=== PATIENT | male | born 1955 | race Caucasian/White ===

== ENCOUNTER 2022-05-22 13:23 | Inpatient (IN) | payer MEDICARE, OTHER ==
[~2022-05-22] VITALS: Ht 180.3 cm; Wt 97.5 kg
--- NOTE | 2022-05-22 13:47 | ED General ---
General Chief Complaint: Abdominal/GI Problems Stated Complaint: ABD PAIN History of Present Illness Date Seen by Provider: May 22, 2022 Time Seen by Provider: 13:45 Initial Comments 67-year-old male with PMH of HTN/HLD/BPH, is here with complaints of epigastric and RUQ pain which began last night after he had a dinner of spaghetti at home. The spaghetti was leftovers from 2 or 3 days ago. Denies fever, diarrhea, vomiting, chest pain, palpitations, constipation, shortness of breath. Patient had COVID 3 weeks ago. Allergies and Home Medications Allergies Coded Allergies: No Known Drug Allergies (Unverified , 05/22/22) Patient Home Medication List Home Medication List Reviewed: Yes Review of Systems Review of Systems Constitutional: no symptoms reported, malaise EENTM: no symptoms reported Respiratory: no symptoms reported Cardiovascular: no symptoms reported Gastrointestinal: abdominal pain, loss of appetite, nausea Genitourinary: no symptoms reported Musculoskeletal: no symptoms reported Skin: no symptoms reported Psychiatric/Neurological: No Symptoms Reported Hematologic/Lymphatic: No Symptoms Reported Immunological/Allergic: no symptoms reported Physical Exam Vital Signs Vital Signs - First Documented 05/22/22 14:53 Temp 36.8 Pulse 69 Resp 18 B/P (MAP) 164/99 (120) Pulse Ox 99 O2 Delivery Room Air Capillary Refill : Height, Weight, BMI Height: '" Weight: lbs. oz. kg; BMI Method: General Appearance: Moderate Distress HEENT: PERRL/EOMI, Normal ENT Inspection Neck: Full Range of Motion, Normal Inspection, Non Tender, Supple Respiratory: Chest Non Tender, Lungs Clear, Normal Breath Sounds, No Accessory Muscle Use Cardiovascular: Regular Rate, Rhythm, No Edema Gastrointestinal: Normal Bowel Sounds, No Pulsatile Mass, Soft, Tenderness (epigastric tenderness and RUQ tenderness) Extremity: Normal Inspection, Normal Range of Motion Neurologic/Psychiatric: Alert, Oriented x3, No Motor/Sensory Deficits, Normal Mood/Affect Skin: Normal Color, Warm/Dry Focused Exam Lactate Level 05/22/22 14:05: Lactic Acid Level 1.91 Lactic Acid Level Laboratory Tests Test 05/22/22 14:05 Lactic Acid Level 1.91 MMOL/L (0.50-2.00) Progress/Results/Core Measures Suspected Sepsis SIRS Temperature: Pulse: Respiratory Rate: Laboratory Tests 05/22/22 14:05: White Blood Count 11.5H Blood Pressure / Mean: 05/22/22 14:05: Lactic Acid Level 1.91 Laboratory Tests 05/22/22 14:05: Creatinine 0.88, INR Comment 0.9, Platelet Count 210, Total Bilirubin 0.8 Results/Orders Lab Results Laboratory Tests Test 05/22/22 14:05 05/22/22 15:45 05/22/22 15:49 Range/Units White Blood Count 11.5 H 4.3-11.0 10^3/uL Red Blood Count 5.03 4.30-5.52 10^6/uL Hemoglobin 16.2 13.3-17.7 g/dL Hematocrit 46 40-54 % Mean Corpuscular Volume 91 80-99 fL Mean Corpuscular Hemoglobin 32 25-34 pg Mean Corpuscular Hemoglobin Concent 35 32-36 g/dL Red Cell Distribution Width 11.7 10.0-14.5 % Platelet Count 210 130-400 10^3/uL Mean Platelet Volume 9.9 9.0-12.2 fL Immature Granulocyte % (Auto) 0 % Neutrophils (%) (Auto) 84 H 42-75 % Lymphocytes (%) (Auto) 11 L 12-44 % Monocytes (%) (Auto) 4 0-12 % Eosinophils (%) (Auto) 0 0-10 % Basophils (%) (Auto) 0 0-10 % Neutrophils # (Auto) 9.6 H 1.8-7.8 10^3/uL Lymphocytes # (Auto) 1.3 1.0-4.0 10^3/uL Monocytes # (Auto) 0.5 0.0-1.0 10^3/uL Eosinophils # (Auto) 0.0 0.0-0.3 10^3/uL Basophils # (Auto) 0.0 0.0-0.1 10^3/uL Immature Granulocyte # (Auto) 0.0 0.0-0.1 10^3/uL Prothrombin Time 12.7 12.2-14.7 SEC INR Comment 0.9 0.8-1.4 Activated Partial Thromboplast Time 32 24-35 SEC D-Dimer 1.35 H 0.00-0.49 UG/ML Sodium Level 140 135-145 MMOL/L Potassium Level 3.7 3.6-5.0 MMOL/L Chloride Level 101 98-107 MMOL/L Carbon Dioxide Level 25 21-32 MMOL/L Anion Gap 14 5-14 MMOL/L Blood Urea Nitrogen 11 7-18 MG/DL Creatinine 0.88 0.60-1.30 MG/DL Estimat Glomerular Filtration Rate 94 BUN/Creatinine Ratio 13 Glucose Level 138 H 70-105 MG/DL Lactic Acid Level 1.91 0.50-2.00 MMOL/L Calcium Level 10.3 H 8.5-10.1 MG/DL Corrected Calcium 8.5-10.1 MG/DL Magnesium Level 1.5 L 1.6-2.4 MG/DL Total Bilirubin 0.8 0.1-1.0 MG/DL Aspartate Amino Transf (AST/SGOT) 42 H 5-34 U/L Alanine Aminotransferase (ALT/SGPT) 48 0-55 U/L Alkaline Phosphatase 73 40-136 U/L Troponin I 1.84 *H 3.25 *H <0.30 NG/ML Pro-B-Type Natriuretic Peptide 2107.0 H <125.0 PG/ML Total Protein 8.6 H 6.4-8.2 GM/DL Albumin 4.9 H 3.2-4.5 GM/DL Lipase 22 8-78 U/L Urine Color YELLOW Urine Clarity CLEAR Urine pH 8.0 5-9 Urine Specific [place] 1.015 L 1.016-1.022 Urine Protein TRACE H NEGATIVE Urine Glucose (UA) NEGATIVE NEGATIVE Urine Ketones 2+ H NEGATIVE Urine Nitrite NEGATIVE NEGATIVE Urine Bilirubin NEGATIVE NEGATIVE Urine Urobilinogen 0.2 < = 1.0 MG/DL Urine Leukocyte Esterase NEGATIVE NEGATIVE Urine RBC (Auto) NEGATIVE NEGATIVE Urine RBC NONE /HPF Urine WBC NONE /HPF Urine Squamous Epithelial Cells RARE /HPF Urine Crystals NONE /LPF Urine Bacteria NEGATIVE /HPF Urine Casts NONE /LPF Urine Mucus NEGATIVE /LPF Urine Culture Indicated NO My Orders Orders - EVAN RICH MD Cbc With Automated Diff (05/22/22 13:56) Comprehensive Metabolic Panel (05/22/22 13:56) Lactic Acid Analyzer (05/22/22 13:56) Lipase (05/22/22 13:56) Magnesium (05/22/22 13:56) Ua Culture If Indicated (05/22/22 13:56) Troponin I Fs (05/22/22 13:56) Ed Iv/Invasive Line Start (05/22/22 13:56) Ondansetron Injection (Zofran Injectio (05/22/22 14:15) Pantoprazole Injection (Protonix Injecti (05/22/22 14:15) Morphine Injection (Morphine Injection (05/22/22 14:01) Ct Abdomen/Pelvis W (05/22/22 14:02) Iohexol Injection (Omnipaque 350 Mg/Ml 1 (05/22/22 14:30) Received Contrast (Hold Metformin- Contr (05/22/22 14:30) Ns (Ivpb) (Sodium Chloride 0.9% Ivpb Bag (05/22/22 14:30) Us Gallbladder [id number] (05/22/22 14:40) Continuous Ekg Monitoring (05/22/22 14:44) Ekg Tracing (05/22/22 14:44) Aspirin Chewable Tablet (Baby Aspirin Ch (05/22/22 14:45) Morphine Injection (Morphine Injection (05/22/22 14:44) Chest 1 View Ap/Pa Only (05/22/22 14:47) Fibrin Degradation Products (05/22/22 14:47) Protime With Inr (05/22/22 14:47) Partial Thromboplastin Time (05/22/22 14:47) Probnp Fs (05/22/22 14:48) Nitroglycerin 0.4 Mg Btl 25's (Nitrostat (05/22/22 15:00) Hydromorphone Injection (Dilaudid Inject (05/22/22 15:30) Iohexol Injection (Omnipaque 350 Mg/Ml 1 (05/22/22 15:45) Received Contrast (Hold Metformin- Contr (05/22/22 15:45) Ns (Ivpb) (Sodium Chloride 0.9% Ivpb Bag (05/22/22 15:45) Troponin I Fs (05/22/22 15:45) Ekg Tracing (05/22/22 15:45) Ct Angio Chest W (05/22/22 ) Iohexol Injection (Omnipaque 350 Mg/Ml 1 (05/22/22 16:45) Received Contrast (Hold Metformin- Contr (05/22/22 16:45) Ns (Ivpb) (Sodium Chloride 0.9% Ivpb Bag (05/22/22 16:45) Enoxaparin Injection (Lovenox Injection) (05/22/22 16:29) Ed Admission (Communication) (05/22/22 16:42) Clopidogrel Tablet (Plavix Tablet) (05/22/22 18:15) Medications Given in ED Current Medications Medications Dose Ordered Sig/Nikolas Route Start Time Stop Time Status Last Admin Dose Admin Aspirin 324 mg ONCE ONCE PO 05/22/22 14:45 05/22/22 14:46 DC 05/22/22 14:49 324 MG Hydromorphone HCl 1 mg ONCE ONCE IV 05/22/22 15:30 05/22/22 15:31 DC 05/22/22 15:31 1 MG Iohexol 100 ml ONCE ONCE IV 05/22/22 14:30 05/22/22 14:31 DC 05/22/22 15:05 100 ML Iohexol 100 ml ONCE ONCE IV 05/22/22 16:45 05/22/22 16:46 DC 05/22/22 16:48 100 ML Nitroglycerin 0.4 mg UD PRN SL 05/22/22 15:00 05/22/22 15:10 0.4 MG Ondansetron HCl 4 mg ONCE ONCE IVP 05/22/22 14:15 05/22/22 14:16 DC 05/22/22 14:11 4 MG Pantoprazole 40 mg ONCE ONCE IV 05/22/22 14:15 05/22/22 14:16 DC 05/22/22 14:11 40 MG Sodium Chloride 100 ml ONCE ONCE IV 05/22/22 14:30 05/22/22 14:31 DC 05/22/22 15:05 100 ML Sodium Chloride 100 ml ONCE ONCE IV 05/22/22 16:45 05/22/22 16:46 DC 05/22/22 16:48 100 ML Vital Signs/I&O 05/22/22 14:53 Temp 36.8 Pulse 69 Resp 18 B/P (MAP) 164/99 (120) Pulse Ox 99 O2 Delivery Room Air Capillary Refill : Progress Note : Progress Note 1. EPIGASTRIC & RUQ PAIN: - CT ABD & PELVIS: unremarkable - Lipase negative - UA: negative - Morphine 2mg iv, didn't work/ Morphine 4mg iv didn't work/ Dilaudid 1mg iv gave relief from pain - Discussed with hospitalist, Dr Andrade and accepted to step down. Cardiology consult 2. ELEVATED TROPONIN: NSTEMI - s. Troponin is 1.86 and second trop is 3.25 - ASA 324mg STAT - Sublingual Nitro STAT x1 - Discussed with Insurance Loss Adjuster, Dr Christian. Full dose Lovenox, do CTA chest, and will admit for NSTEMI for conservative management. IF negative for PE, give Plavix 300mg as well. - Lovenox 1mg/kg body weight given STAT - Plavix 300mg STAT in ER 3. ELEVATED D-DIMER: - D-dimer: 1.35 - CTA CHEST: negative for PE - Recent COVID 3 weeks ago - Denies SOB and O2 sat stable on room air. Diagnostic Imaging Diagonstic Imaging: Xray, CT Plain Films/CT/US/NM/MRI: chest, abdomen Comments [facility] [place] NAME: IKE EASTMAN [facility] REC#: [id number] PT STATUS: REG ER : 1955 PHYSICIAN: EVAN RICH MD ADMIT DATE: 05/22/22/ER FS Draft Date of Exam:05/22/22 CT ABDOMEN/PELVIS W EXAMINATION: CT abdomen and pelvis with intravenous contrast. TECHNIQUE: Multiple contiguous axial images were obtained through the abdomen and pelvis after the uneventful administration of intravenous contrast. All CT scans use one or more of the following dose optimizing techniques: automated exposure control, MA and/or KvP adjustment based on patient size and exam type or iterative reconstruction. HISTORY: Epigastric pain. COMPARISON: None available. FINDINGS: Limited views of the lower thorax are unremarkable. The liver is normal without focal lesion. There is no biliary ductal dilation. Gallbladder is normal. Pancreas is normal. Spleen is normal. Adrenal glands are normal. Simple cysts are present in the kidneys. No suspicious renal lesions. There is no hydronephrosis. Urinary bladder is normal. Bowel is normal in caliber without obstruction or inflammation. Trace amount of free fluid is present in the pelvis. No free air. No abdominal or pelvic lymphadenopathy. Aorta is normal in caliber without aneurysm. There are no suspicious osseus lesions. Spinal stimulator is present. IMPRESSION: No acute abnormality in the abdomen or pelvis. Dictated on workstation # [id number] Dict: 05/22/22 1520 Trans: 05/22/22 1525 [id number] Interpreted by: LASHAWN HOLLAND MD Electronically signed by: Departure Communication (Admissions) Time/Spoke to Admitting Phy: 14:[address] Andrade. Will call cardiology consult after getting second troponin back Time/Spoke to Consulting Phy: 16:00 Discussed with audiology doctor, Dr. Christian Impression Primary Impression: Epigastric abdominal pain Additional Impressions: Elevated troponin Elevated d-dimer NSTEMI (non-ST elevated myocardial infarction) Disposition: 30 STILL A PATIENT Condition: Stable Admissions Decision to Admit Reason: Admit from ER (General) Decision to Admit/Date: May 22, 2022 Time/Decision to Admit Time: 14:30 Transfer Transfer Reason: Exceeds level of care Time Spoke to Accepting Phy: 14:55 Transfer Progress Notes See note Transfer Facility: [facility]: [place] Method of Transfer: EMS Departure-Patient Inst. Referrals: TODD RAE APRN (PCP) Primary Care Physician [facility] (Family) Primary Care Physician EVAN RICH MD May 22, 2022 13:46
[2022-05-22] MEDS ORDERED: morphine INJ 10 MG/ML 1ML (SYR OR VIAL) IVP STA (14:01)
[2022-05-22] MEDS ORDERED: ONDANSETRON 4 MG/2 ML (SDV) Z0FRAN IVP ONE (14:15)
[2022-05-22] MEDS ORDERED: PANTOPRAZOLE 40 MG (PROTONIX) VIAL IV ONE (14:15)
[2022-05-22 14:18] LABS: BASOPHILS % (AUTO) 0 % (0-10); EOSINOPHILS % (AUTO) 0 % (0-10); HEMATOCRIT 46 % (40-54); HEMOGLOBIN 16.2 g/dL (13.3-17.7); LYMPHOCYTES # (AUTO) 1.3 10^3/uL (1.0-4.0); LYMPHOCYTES % (AUTO) 11 % (12-44); MEAN CORPUSCULAR HEMOGLOBIN 32 pg (25-34); MEAN CORPUSCULAR HGB CONC 35 g/dL (32-36); MEAN CORPUSCULAR VOLUME 91 fL (80-99); MEAN PLATELET VOLUME 9.9 fL (9.0-12.2); MONOCYTES # (AUTO) 0.5 10^3/uL (0.0-1.0); MONOCYTES % (AUTO) 4 % (0-12); NEUTROPHILS # (AUTO) 9.6 10^3/uL (1.8-7.8); NEUTROPHILS % (AUTO) 84 % (42-75); PLATELET COUNT 210 10^3/uL (130-400); WHITE BLOOD COUNT 11.5 10^3/uL (4.3-11.0)
[2022-05-22] MEDS ORDERED: NS 100 ML (IVPB) BAG IV ONE ×3 (14:30→16:45)
[2022-05-22] MEDS ORDERED: HOLD METFORMIN - RECEIVED CONTRAST 20 ML VIAL IV SCH ×3 (14:30→16:45)
[2022-05-22] MEDS ORDERED: IOHEXOL 350 MG/ML 100 ML (OMNIPAQUE 350) VIAL IV ONE ×3 (14:30→16:45)
[2022-05-22 14:40] LABS: BUN/CREATININE RATIO 13; CALCIUM 10.3 MG/DL (8.5-10.1); CARBON DIOXIDE 25 MMOL/L (21-32); CHLORIDE 101 MMOL/L (98-107); CREATININE SERUM 0.88 MG/DL (0.60-1.30); GFR ESTIMATED 94; GLUCOSE 138 MG/DL (70-105); POTASSIUM 3.7 MMOL/L (3.6-5.0); SODIUM 140 MMOL/L (135-145)
[2022-05-22 14:41] LABS: ALANINE AMINOTRANSFERASE 48 U/L (0-55); ALKALINE PHOSPHATASE 73 U/L (40-136); BILIRUBIN,TOTAL 0.8 MG/DL (0.1-1.0); MAGNESIUM 1.5 MG/DL (1.6-2.4)
[2022-05-22 14:42] LABS: ALBUMIN 4.9 GM/DL (3.2-4.5); TOTAL PROTEIN 8.6 GM/DL (6.4-8.2)
[2022-05-22 14:43] LABS: LIPASE 22 U/L (8-78)
[2022-05-22] MEDS ORDERED: morphine INJ 10 MG/ML 1ML (SYR OR VIAL) IV STA (14:44)
[2022-05-22] MEDS ORDERED: ASPIRIN 81 MG CHEW (CHILDREN'S ASA) PO ONE (14:45)
[2022-05-22] MEDS ORDERED: HYDROmorphone 2 MG/ML VIAL (DILAUDID) IV ONE ×2 (14:45→15:30)
[2022-05-22] MEDS ORDERED: NITROGLYCERIN 0.4 MG SL TABS BTL 25'S SL PRN (15:00)
[2022-05-22 15:09] LABS: FIBRIN DEGRADATION PRODUCTS 1.35 UG/ML (0.00-0.49); INR 0.9 (0.8-1.4); PROTHROMBIN TIME PATIENT 12.7 SEC (12.2-14.7)
--- NOTE | 2022-05-22 15:26 | Diagnostic Imaging Report ---
EXAMINATION: CT abdomen and pelvis with intravenous contrast. TECHNIQUE: Multiple contiguous axial images were obtained through the abdomen and pelvis after the uneventful administration of intravenous contrast. All CT scans use one or more of the following dose optimizing techniques: automated exposure control, MA and/or KvP adjustment based on patient size and exam type or iterative reconstruction. HISTORY: Epigastric pain. COMPARISON: None available. FINDINGS: Limited views of the lower thorax are unremarkable. The liver is normal without focal lesion. There is no biliary ductal dilation. Gallbladder is normal. Pancreas is normal. Spleen is normal. Adrenal glands are normal. Simple cysts are present in the kidneys. No suspicious renal lesions. There is no hydronephrosis. Urinary bladder is normal. Bowel is normal in caliber without obstruction or inflammation. Trace amount of free fluid is present in the pelvis. No free air. No abdominal or pelvic lymphadenopathy. Aorta is normal in caliber without aneurysm. There are no suspicious osseus lesions. Spinal stimulator is present. IMPRESSION: No acute abnormality in the abdomen or pelvis. Dictated by: Dictated on workstation # [id number]
--- NOTE | 2022-05-22 15:46 | Diagnostic Imaging Report ---
Indication: Epigastric pain. Time of Exam: 3:11 PM No prior studies are available for comparison. Heart size normal. Right hemidiaphragm is mildly elevated. Lungs are clear. No infiltrates are seen. There is no effusion or pneumothorax. Battery pack overlies the left base. IMPRESSION: No acute cardiopulmonary process is detected. Dictated by: Dictated on workstation # [id number]
[2022-05-22 16:09] LABS: BILIRUBIN,URINE NEGATIVE (NEGATIVE); CLARITY,URINE CLEAR; COLOR,URINE YELLOW; GLUCOSE, URINE (UA) NEGATIVE (NEGATIVE); KETONES,URINE 2+ (NEGATIVE); LEUKOCYTE ESTERASE ,URINE NEGATIVE (NEGATIVE); NITRITE,URINE NEGATIVE (NEGATIVE); PROTEIN,URINE TRACE (NEGATIVE)
[2022-05-22 16:21] LABS: BACTERIA,URINE NEGATIVE /HPF; SQUAMOUS EPITHELIAL CELL,UR RARE /HPF
[2022-05-22] MEDS ORDERED: ENOXAPARIN 100 MG/1 ML (LOVENOX) SYR SC STA (16:29)
--- NOTE | 2022-05-22 17:55 | Diagnostic Imaging Report ---
PROCEDURE: CT angiography of the chest with contrast. TECHNIQUE: Multiple contiguous axial images were obtained through the chest after uneventful bolus administration of intravenous contrast. 3D reconstructed CTA MIP acquisitions were also performed. Auto Exposure Controls were utilized during the CT exam to meet ALARA standards for radiation dose reduction. INDICATION: Elevated D-dimer. FINDINGS: Pulmonary arterial branches are well opacified and widely patent. No filling defect. No PE. The thoracic aorta is nonaneurysmal. There is no pleural or pericardial effusion. There are no findings of pneumonia or pulmonary edema. No lung mass or suspicious nodule. There is no thoracic lymphadenopathy and no acute chest wall pathology. Spinal catheter terminates at the T1-T2 level. The visualized upper abdomen is nonacute. IMPRESSION: 1. Negative for PE or acute aortic disease. Clear lungs with no mass, edema, or pneumonia. No effusion or pleural pathology. 2. No acute-appearing abnormality identified. Dictated by: Dictated on workstation # [id number]
[2022-05-22] MEDS ORDERED: CLOPIDOGREL 300 MG (PLAVIX) TABLET PO ONE (18:15)
[2022-05-22] MEDS ORDERED: HYDROmorphone 2 MG/ML VIAL (DILAUDID) ONE (18:53)
[2022-05-22 19:51] VITALS: BP 138/92
[2022-05-22] MEDS ORDERED: NS IV 1000 ML 1,000 ML ONE (21:12)
[2022-05-22] MEDS: NS IV 1000 ML 1,000 ML IV SCH (21:40)
[2022-05-22 22:00] VITALS: BP 103/69
[2022-05-23] VITALS (9 sets, daily range): BP systolic 79–127; BP diastolic 44–81
[2022-05-23] MEDS ORDERED: HYDROmorphone 2 MG/ML VIAL (DILAUDID) ONE (00:27)
[2022-05-23] MEDS ORDERED: HYDROmorphone 2 MG/ML VIAL (DILAUDID) IV PRN (00:30)
[2022-05-23] MEDS: HYDROmorphone 2 MG/ML VIAL (DILAUDID) IV PRN ×4 (02:26→12:32)
[2022-05-23] MEDS: NS IV 1000 ML 1,000 ML IV SCH ×3 (04:34→17:15)
[2022-05-23 05:24] LABS: BASOPHILS % (AUTO) 0 % (0-10); EOSINOPHILS % (AUTO) 1 % (0-10); HEMATOCRIT 40 % (40-54); HEMOGLOBIN 13.3 g/dL (13.3-17.7); LYMPHOCYTES # (AUTO) 2.2 10^3/uL (1.0-4.0); LYMPHOCYTES % (AUTO) 31 % (12-44); MEAN CORPUSCULAR HEMOGLOBIN 32 pg (25-34); MEAN CORPUSCULAR HGB CONC 34 g/dL (32-36); MEAN CORPUSCULAR VOLUME 94 fL (80-99); MEAN PLATELET VOLUME 9.8 fL (9.0-12.2); MONOCYTES # (AUTO) 0.6 10^3/uL (0.0-1.0); MONOCYTES % (AUTO) 8 % (0-12); NEUTROPHILS # (AUTO) 4.3 10^3/uL (1.8-7.8); NEUTROPHILS % (AUTO) 60 % (42-75); PLATELET COUNT 183 10^3/uL (130-400); WHITE BLOOD COUNT 7.2 10^3/uL (4.3-11.0)
[2022-05-23 05:48] LABS: ALBUMIN 3.7 GM/DL (3.2-4.5); POTASSIUM 3.5 MMOL/L (3.6-5.0)
[2022-05-23 05:50] LABS: CALCIUM 8.8 MG/DL (8.5-10.1)
[2022-05-23 05:51] LABS: TOTAL PROTEIN 6.5 GM/DL (6.4-8.2)
[2022-05-23 05:53] LABS: BILIRUBIN,TOTAL 0.8 MG/DL (0.1-1.0)
[2022-05-23 05:54] LABS: CREATININE SERUM 0.91 MG/DL (0.60-1.30)
--- NOTE | 2022-05-23 08:13 | Consultation-Cardiology ---
HPI-Cardiology Cardiology Consultation: Date of Consultation 05/23/22 Time Seen by a Provider: 08:25 Date of Admission 05-22-22 Attending Physician Whitney Rios Aprn Admitting Physician Admitting Physician: Rebecca Andrade MD Attending Physician: Rebecca Andrade MD Consulting Physician Jen Christian MD HPI: Chief Complaint: Chest pain Mr. Barclay is a 67 yr old male admitted to [facility] from the [facility] ED. He reports he ate dinner on Sunday night and then around 10:00 he developed epigastric discomfort, nausea, diaphoresis and SOB. He states he was up most of the night on Sunday night. He reports he tried TUMS, soda water; but nothing helped it. He reports he felt lightheaded. He states the symptoms were consistent throughout the night and into Sunday morning. He reports he felt generally unwell. No vomiting or diarrhea. No palpitations. No syncope or near syncope. He denies any LE swelling. He states he has continued to have symptoms off and on throughout the night. He reports he had some relief with Dilaudid. He is reporting FORTUNE and neck pain this morning. His spouse is at the bedside. 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 Review of Systems-Cardiology Review of Systems Constitutional: No chills, No fever; lightheadedness Eyes: No vision change Ears/Nose/Throat: No epistaxis, No recent hearing loss Respiratory: As described under HPI Cardiovascular: As described under HPI Gastrointestinal: As described under HPI Genitourinary: No dysuria, No hematuria Musculoskeletal: As describe under HPI Skin: No rash on exposed areas, No ulcerations on exposed areas Psychiatric/Neurological: No anxiety, No depression, No seizure, No focal weakness, No syncope Hematologic: No bleeding abnormalities ADQ-Wvfhtf-Dmtovb Hx Patient Social History Have you traveled recently?: No Alcohol Use?: No Past Medical History PMH As described under Assessment. Family Medical History Family Medical History: He reports his grandfather passed from an NE at age 49. He denies any other family h/o CAD. Allergies and Home Medications Allergies Coded Allergies: No Known Drug Allergies (Unverified , 05/22/22) Patient Home Medication List Cholecalciferol (Vitamin D3) (Vitamin D3) 50 Mcg (2000 Unit) Capsule, 50 MCG PO DAILY, (Reported) Entered as Reported by: CORI MENDEZ on 05/23/221224 Last Action: Converted Cyanocobalamin (Vitamin B-12) (Vitamin B-12) 2,000 Mcg Tablet, 2,000 MCG PO DAILY, (Reported) Entered as Reported by: CORI MENDEZ on 05/23/221224 Last Action: Converted Diphenhydramine HCl (Benadryl Allergy) 25 Mg Tablet, 50 MG PO HS PRN for SLEEP, (Reported) Entered as Reported by: CORI MENDEZ on 05/23/221224 Last Action: Continued Docusate Sodium (Docusate Sodium) 100 Mg Tablet, 200 MG PO HS, (Reported) Entered as Reported by: CORI MENDEZ on 05/23/221224 Last Action: Converted Ibuprofen (Ibuprofen) 200 Mg Capsule, 400 MG PO Q8H PRN for PAIN-MILD (1-4), ( Reported) Entered as Reported by: CORI MENDEZ on 05/23/221224 Last Action: Reviewed Melatonin (Melatonin) 10 Mg Tablet, 10 MG PO HS, (Reported) Entered as Reported by: CORI MENDEZ on 05/23/221224 Last Action: Continued Metoprolol Succinate (Metoprolol Succinate) 25 Mg Tab.er.24h, 25 MG PO DAILY, (Reported) Entered as Reported by: CORI MENDEZ on 05/23/221224 Last Action: Continued Omeprazole (Omeprazole) 20 Mg Tablet.dr, 20 MG PO HS, (Reported) Entered as Reported by: CORI MENDEZ on 05/23/221224 Last Action: Reviewed Rosuvastatin Calcium (Rosuvastatin Calcium) 10 Mg Tablet, 10 MG PO DAILY, (Reported) Entered as Reported by: CORI MENDEZ on 05/23/221224 Last Action: Reviewed Tamsulosin HCl (Flomax) 0.4 Mg Cap, 0.4 MG PO DAILY, (Reported) Entered as Reported by: CORI MENDEZ on 05/23/221224 Last Action: Continued Physical Exam-Cardiology Physical Exam Vital Signs/I&O 05/23/22 05/23/22 05/24/22 05/24/22 22:00 23:00 00:00 01:00 Temp 36.0 Pulse 43 46 44 42 Resp B/P (MAP) 79/44 (59) 110/65 (80) 104/64 (77) Pulse Ox 97 95 96 O2 Delivery Nasal Cannula Nasal Cannula Nasal Cannula O2 Flow Rate 2.00 2.00 2.00 05/24/22 05/24/22 05/24/22 05/24/22 04:00 06:32 08:00 08:20 Temp 36.3 36.2 Pulse 49 43 57 Resp 24 22 B/P (MAP) 112/79 (90) 121/72 (88) Pulse Ox 96 98 O2 Delivery Nasal Cannula Room Air Nasal Cannula O2 Flow Rate 2.00 2.00 05/24/22 00:00 Intake Total 1855 ml Output Total 250 ml Balance 1605 ml Capillary Refill : Constitutional: AAO x 3, well-developed, well-nourished HEENT: PERRL, hearing is well preserved, oral hygience is good Neck: No carotid bruit; carotid pulses are 2 + bilaterally Respiratory: No accessory muscle use, No respiratory distress; chest expansion is symmetric, chest is bilaterally symmetric, lungs clear to auscultation Cardiovascular: regular rate-rhythm; No JVD; S1 and S2 Gastrointestinal: No tender; soft, round, audible bowel sounds Extremities: no lower extremity edema bilateral Neurologic/Psychiatric: grossly intact (moves all extremities) Skin: No rash on exposed areas, No ulcerations on exposed areas Data Review Labs Laboratory Tests 05/24/22 05:51: White Blood Count 5.4, Red Blood Count 3.65L, Hemoglobin 11.7L, Hematocrit 35L, Mean Corpuscular Volume 96, Mean Corpuscular Hemoglobin 32, Mean Corpuscular Hemoglobin Concent 33, Red Cell Distribution Width 11.8, Platelet Count 148, Mean Platelet Volume 10.0, Immature Granulocyte % (Auto) 0, Neutrophils (%) (A uto) 63, Lymphocytes (%) (Auto) 27, Monocytes (%) (Auto) 8, Eosinophils (%) (Auto) 1, Basophils (%) (Auto) 1, Neutrophils # (Auto) 3.4, Lymphocytes # (Auto) 1.4, Monocytes # (Auto) 0.4, Eosinophils # (Auto) 0.1, Basophils # (Auto) 0.0, Immature Granulocyte # (Auto) 0.0, Sodium Level 140, Potassium Level 4.0, Chloride Level 107, Carbon Dioxide Level 23, Anion Gap 10, Blood Urea Nitrogen 15, Creatinine 0.77, Estimat Glomerular Filtration Rate 98, BUN/Creatinine Ratio 19, Glucose Level 99, Calcium Level 8.5, Corrected Calcium 9.1, Magnesium Level 1.9, Total Bilirubin 0.6, Aspartate Amino Transf (AST/SGOT) 24, Alanine Aminotransferase (ALT/SGPT) 26, Alkaline Phosphatase 43, Total Protein 5.8L, Albumin 3.3 Radiology NAME: IKE BARCLAY [facility] REC#: [id number] PT STATUS: REG ER : 1955 PHYSICIAN: EVAN RICH MD ADMIT DATE: 05/22/22/ER FS Signed Date of Exam:05/22/22 CT ANGIO CHEST W PROCEDURE: CT angiography of the chest with contrast. TECHNIQUE: Multiple contiguous axial images were obtained through the chest after uneventful bolus administration of intravenous contrast. 3D reconstructed CTA MIP acquisitions were also performed. Auto Exposure Controls were utilized during the CT exam to meet ALARA standards for radiation dose reduction. INDICATION: Elevated D-dimer. FINDINGS: Pulmonary arterial branches are well opacified and widely patent. No filling defect. No PE. The thoracic aorta is nonaneurysmal. There is no pleural or pericardial effusion. There are no findings of pneumonia or pulmonary edema. No lung mass or suspicious nodule. There is no thoracic lymphadenopathy and no acute chest wall pathology. Spinal catheter terminates at the T1-T2 level. The visualized upper abdomen is nonacute. IMPRESSION: 1. Negative for PE or acute aortic disease. Clear lungs with no mass, edema, or pneumonia. No effusion or pleural pathology. 2. No acute-appearing abnormality identified. Dictated by: Dictated on workstation # [id number] Dict: 05/22/22 1745 Trans: 05/22/221801 AS6 [id number] Interpreted by: RAVEN CASTANEDA Electronically signed by: RAVEN CASTANEDA 05/22/221801 NAME: IKE BARCLAY [facility] REC#: [id number] PT STATUS: REG ER : 1955 PHYSICIAN: EVAN RICH MD ADMIT DATE: 05/22/22/ER FS Signed Date of Exam:05/22/22 CT ABDOMEN/PELVIS W EXAMINATION: CT abdomen and pelvis with intravenous contrast. TECHNIQUE: Multiple contiguous axial images were obtained through the abdomen and pelvis after the uneventful administration of intravenous contrast. All CT scans use one or more of the following dose optimizing techniques: automated exposure control, MA and/or KvP adjustment based on patient size and exam type or iterative reconstruction. HISTORY: Epigastric pain. COMPARISON: None available. FINDINGS: Limited views of the lower thorax are unremarkable. The liver is normal without focal lesion. There is no biliary ductal dilation. Gallbladder is normal. Pancreas is normal. Spleen is normal. Adrenal glands are normal. Simple cysts are present in the kidneys. No suspicious renal lesions. There is no hydronephrosis. Urinary bladder is normal. Bowel is normal in caliber without obstruction or inflammation. Trace amount of free fluid is present in the pelvis. No free air. No abdominal or pelvic lymphadenopathy. Aorta is normal in caliber without aneurysm. There are no suspicious osseus lesions. Spinal stimulator is present. IMPRESSION: No acute abnormality in the abdomen or pelvis. Dictated by: Dictated on workstation # [id number] Dict: 05/22/22 1520 Trans: 05/22/221656 [id number] Interpreted by: LASHAWN HOLLAND MD Electronically signed by: LASHAWN HOLLAND MD 05/22/22 165 NAME: IKE BARCLAY [facility] REC#: [id number] PT STATUS: REG ER : 1955 PHYSICIAN: EVAN RICH MD ADMIT DATE: 05/22/22/ER FS Signed Date of Exam:05/22/22 CHEST 1 VIEW AP/PA ONLY Indication: Epigastric pain. Time of Exam: 3:11 PM No prior studies are available for comparison. Heart size normal. Right hemidiaphragm is mildly elevated. Lungs are clear. No infiltrates are seen. There is no effusion or pneumothorax. Battery pack overlies the left base. IMPRESSION: No acute cardiopulmonary process is detected. Dictated by: Dictated on workstation # [id number] Dict: 05/22/22 1540 Trans: 05/22/22 1552 [facility] [id number] Interpreted by: TIAN QUESADA MD Electronically signed by: TIAN QUESADA MD 05/22/22 155 ECG Impression ECG Initial ECG Rhythm: Normal Sinus A/P-Cardiology Assessment/Admission Diagnosis NSTEMI HTN HLD BPH Chronic neck and back pain - has a pain pump implanted - h/o cervical neck surgery H/O bilat knee replacements Discussion and Recomendations NSTEMI with continuing symptoms - we advise cardiac cath We have discussed the procedure, risks, benefits and potential complications of cardiac cath with possible ad hoc coronary intervention. He provides informed consent We will proceed today Start BB, ASA and Plavix Continue home Crestor Monitor lab closely Further recs will be based on his hospital course We would like to thank medical services for this consult CLARISSA HUMPHRIES May 23, 2022 08:13
[2022-05-23] MEDS ORDERED: CLOPIDOGREL 75 MG (PLAVIX) TABLET PO SCH (09:00)
[2022-05-23] MEDS ORDERED: PANTOPRAZOLE 40 MG (PROTONIX) VIAL IV ONE (09:00)
[2022-05-23] MEDS ORDERED: HEParin (CATH LAB) 2,000 ML IV ONE (09:04)
[2022-05-23] MEDS ORDERED: LIDOCAINE 1% INJ 20 ML VIAL ONE (09:04)
[2022-05-23] MEDS ORDERED: KCL 20 MEQ TAB (K-DUR) PO ONE (09:15)
[2022-05-23] MEDS: meTOprolol TARTRATE 25 MG (LOPRESSOR) TABLET PO SCH ×2 (09:36→20:00)
[2022-05-23] MEDS: ASPIRIN 81 MG CHEW (CHILDREN'S ASA) PO SCH (09:36)
[2022-05-23] MEDS: MAGNESIUM 1 GM/100 ML IVPB 100 ML IV SCH ×2 (11:25→12:31)
[2022-05-23] MEDS ORDERED: DIPH25TA65 PO (12:25)
[2022-05-23] MEDS ORDERED: MELA10TA2 PO (12:25)
[2022-05-23] MEDS ORDERED: TMSL.4C PO (12:25)
[2022-05-23] MEDS ORDERED: CYAN200014 PO (12:25)
[2022-05-23] MEDS ORDERED: CHOL20002 PO (12:25)
[2022-05-23] MEDS ORDERED: MTP25TSR PO (12:25)
[2022-05-23] MEDS ORDERED: IBUP-2185 PO (12:25)
[2022-05-23] MEDS ORDERED: DOCU100T2 PO (12:25)
[2022-05-23] MEDS ORDERED: ROSU10TA28 PO (12:25)
[2022-05-23] MEDS ORDERED: OMEP20TA56 PO (12:25)
[2022-05-23] MEDS ORDERED: fentaNYL INJ 100 MCG/2 ML AMP ONE (15:39)
[2022-05-23] MEDS ORDERED: MIDAZOLAM 5 MG/5 ML (VERSED) VIAL ONE (15:39)
[2022-05-23] MEDS ORDERED: HEParin 1000 UNIT/ML (10ML VIAL) FOR BOLUS ONE (15:40)
[2022-05-23] MEDS ORDERED: NITRO DRIP 25000 MCG/D5W 0 ML IV ONE (15:40)
[2022-05-23] MEDS ORDERED: EPTIFIBATIDE BOLUS 20 ML IV ONE (15:41)
[2022-05-23] MEDS ORDERED: diphenhydrAMINE 50 MG/ML INJ (BENADRYL) ONE (16:23)
--- NOTE | 2022-05-23 16:47 | Consultation-Cardiology ---
HPI-Cardiology Cardiology Consultation: Date of Consultation 05/23/22 Time Seen by a Provider: 15:45 Date of Admission Attending Physician Whitney Rios Aprn Admitting Physician Admitting Physician: Rebecca Andrade MD Attending Physician: Rebecca Andrade MD Consulting Physician KAIDEN ROSSI MD, FACP, [facility] HPI: Chief Complaint: Epigastric pain Mr. Barclay is a 67 yr old male admitted to [facility] from the [facility] ED. He reports he ate dinner on Sunday night and then around 10:00 he developed epigastric discomfort, nausea, diaphoresis and SOB. He states he was up most of the night on Sunday night. He reports he tried TUMS, soda water; but nothing helped it. He reports he felt lightheaded. He states the symptoms were consistent throughout the night and into Sunday morning. He reports he felt generally unwell. No vomiting or diarrhea. No palpitations. No syncope or near syncope. He denies any LE swelling. He states he has continued to have symptoms off and on throughout the night. He reports he had some relief with Dilaudid. He is reporting FORTUNE and neck pain this morning. His spouse is at the bedside. 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 Review of Systems-Cardiology Review of Systems Constitutional: No chills, No fever; lightheadedness Eyes: No vision change Ears/Nose/Throat: No epistaxis, No recent hearing loss Respiratory: As described under HPI Cardiovascular: As described under HPI Gastrointestinal: As described under HPI Genitourinary: No dysuria, No hematuria Musculoskeletal: As describe under HPI Skin: No rash on exposed areas, No ulcerations on exposed areas Psychiatric/Neurological: No anxiety, No depression, No seizure, No focal weakness, No syncope Hematologic: No bleeding abnormalities INA-Fjcqfj-Etribk Hx Patient Social History Have you traveled recently?: No Alcohol Use?: No Past Medical History PMH As described under Assessment. Family Medical History Family Medical History: He reports his grandfather passed from an HI at age 49. He denies any other family h/o CAD. Allergies and Home Medications Allergies Coded Allergies: No Known Drug Allergies (Unverified , 05/22/22) Patient Home Medication List Home Medication List Reviewed: Yes Cholecalciferol (Vitamin D3) (Vitamin D3) 50 Mcg (2000 Unit) Capsule, 50 MCG PO DAILY, (Reported) Entered as Reported by: CORI MENDEZ on 05/23/221224 Last Action: Reviewed Cyanocobalamin (Vitamin B-12) (Vitamin B-12) 2,000 Mcg Tablet, 2,000 MCG PO DAILY, (Reported) Entered as Reported by: CORI MENDEZ on 05/23/221224 Last Action: Reviewed Diphenhydramine HCl (Benadryl Allergy) 25 Mg Tablet, 50 MG PO HS PRN for SLEEP, (Reported) Entered as Reported by: CORI MENDEZ on 05/23/221224 Last Action: Reviewed Docusate Sodium (Docusate Sodium) 100 Mg Tablet, 200 MG PO HS, (Reported) Entered as Reported by: CORI MENDEZ on 05/23/221224 Last Action: Reviewed Ibuprofen (Ibuprofen) 200 Mg Capsule, 400 MG PO Q8H PRN for PAIN-MILD (1-4), (Reported) Entered as Reported by: CORI MENDEZ on 05/23/221224 Last Action: Reviewed Melatonin (Melatonin) 10 Mg Tablet, 10 MG PO HS, (Reported) Entered as Reported by: CORI MENDEZ on 05/23/221224 Last Action: Reviewed Metoprolol Succinate (Metoprolol Succinate) 25 Mg Tab.er.24h, 25 MG PO DAILY, (Reported) Entered as Reported by: CORI MENDEZ on 05/23/221224 Last Action: Reviewed Omeprazole (Omeprazole) 20 Mg Tablet.dr, 20 MG PO HS, (Reported) Entered as Reported by: CORI MENDEZ on 05/23/221224 Last Action: Reviewed Rosuvastatin Calcium (Rosuvastatin Calcium) 10 Mg Tablet, 10 MG PO DAILY, (Reported) Entered as Reported by: CORI MENDEZ on 05/23/221224 Last Action: Reviewed Tamsulosin HCl (Flomax) 0.4 Mg Cap, 0.4 MG PO DAILY, (Reported) Entered as Reported by: CORI MENDEZ on 05/23/221224 Last Action: Reviewed Physical Exam-Cardiology Physical Exam Vital Signs/I&O 05/23/22 05/23/22 05/23/22 05/23/22 06:28 07:37 07:38 11:55 Temp 37.1 36.7 Pulse 49 54 54 Resp 18 18 B/P (MAP) 112/67 (82) 127/81 (96) Pulse Ox 96 96 O2 Delivery Nasal Cannula Room Air Nasal Cannula O2 Flow Rate 2.00 2.00 05/23/22 13:05 Pulse 59 05/23/22 00:00 Intake Total 200 ml Balance 200 ml Capillary Refill : Constitutional: AAO x 3, well-developed, well-nourished HEENT: PERRL, hearing is well preserved, oral hygience is good Neck: No carotid bruit; carotid pulses are 2 + bilaterally Respiratory: No accessory muscle use, No respiratory distress; chest expansion is symmetric, chest is bilaterally symmetric, lungs clear to auscultation Cardiovascular: regular rate-rhythm; No JVD; S1 and S2 Gastrointestinal: No tender; soft, round, audible bowel sounds Extremities: no lower extremity edema bilateral Neurologic/Psychiatric: grossly intact (moves all extremities) Skin: No rash on exposed areas, No ulcerations on exposed areas Data Review Labs Laboratory Tests 05/22/22 20:40: SARS-CoV-2 RNA (RT-PCR) Not Detected 05/23/22 05:08: White Blood Count 7.2, Red Blood Count 4.22L, Hemoglobin 13.3, Hematocrit 40, Mean Corpuscular Volume 94, Mean Corpuscular Hemoglobin 32, Mean Corpuscular Hemoglobin Concent 34, Red Cell Distribution Width 11.9, Platelet Count 183, Mean Platelet Volume 9.8, Immature Granulocyte % (Auto) 0, Neutrophils (%) (Auto) 60, Lymphocytes (%) (Auto) 31, Monocytes (%) (Auto) 8, Eosinophils (%) (Auto) 1, Basophils (%) (Auto) 0, Neutrophils # (Auto) 4.3, Lymphocytes # (Auto) 2.2, Monocytes # (Auto) 0.6, Eosinophils # (Auto) 0.0, Basophils # (Auto) 0.0, Immature Granulocyte # (Auto) 0.0, Sodium Level 141, Potassium Level 3.5L, Chloride Level 106, Carbon Dioxide Level 23, Anion Gap 12, Blood Urea Nitrogen 12, Creatinine 0.91, Estimat Glomerular Filtration Rate 92, BUN/Creatinine Ratio 13, Glucose Level 105, Calcium Level 8.8, Corrected Calcium 9.0, Magnesium Level 1.4L, Total Bilirubin 0.8, Aspartate Amino Transf (AST/SGOT) 36H, Alanine Aminotransferase (ALT/SGPT) 38, Alkaline Phosphatase 50, Total Protein 6.5, Albumin 3.7 A/P-Cardiology Assessment/Admission Diagnosis NSTEMI - card cath on 05/23/22: no angiographically significant CAD, LVEF 50-55%, LVEDP 19 mmHg HTN HLD BPH Chronic neck and back pain - has a pain pump implanted - h/o cervical neck surgery H/O bilat knee replacements Discussion and Recomendations Treat with ASA and beta-nathalia Continue home Crestor Add PPI due h/o PUD and GERD Echo Monitor lab closely Further recs will be based on his hospital course We would like to thank Medical services for this consult KAIDEN ROSSI MD FACP FAC CCDS May 23, 2022 16:46
[2022-05-23] MEDS ORDERED: FAMOTIDINE 20 MG (PEPCID) TABLET PO PRN (17:00)
[2022-05-23] MEDS ORDERED: ACETAMINOPHEN 325 MG TABLET PO PRN (17:00)
[2022-05-23] MEDS ORDERED: PATIENT MAY USE OWN MEDS, ALL PO SCH (17:00)
[2022-05-23] MEDS ORDERED: PANTOPRAZOLE 40 MG (PROTONIX) TAB PO NR (17:00)
[2022-05-23] MEDS ORDERED: ACETAMINOPHEN 325 MG TABLET PO NR (17:15)
[2022-05-23] MEDS ORDERED: diphenhydrAMINE 25 MG TAB (BENADRYL) PO PRN (18:00)
--- NOTE | 2022-05-23 18:16 | Cardiac Procedure Note-CS/ASA ---
Pre-Procedure Note Pre-Op Procedure Note H&P Reviewed The H&P was reviewed, patient examined and no changes noted. Date H&P Reviewed: May 23, 2022 Time H&P Reviewed: 14:30 Conscious Sedation Pre-Proced Time 14:30 ASA Score 3 For ASA 3 and 4: Consider anesthesia and medical clearance. Also, for patients with a history of failed moderate sedation consider anesthesia. Airway Lungs Heart ASA score ASA 1: a normal healthy patient ASA 2: a patient with a mild systemic disease (mid diabetes, controlled hypertension, obesity ASA 3: a patient with a severe systemic disease that limits activity (angina, COPD, prior Myocardial infarction) ASA 4: a patient with an incapacitating disease that is a constant threat to life (CHF, renal failure) ASA 5: a moribund patient not expected to survive 24 hrs. (ruptured aneurysm) ASA 6: a declared brain- patient whose organs are being harvested. For emergent operations, add the letter E after the classification Mallampati Classification Grade 2 Sedation Plan Analgesia, Amnesia, Plan communicated to team members, Discussed options with patient/fam The patient is an appropriate candidate to undergo the planned procedure, sedation, and anesthesia. The patient immediately re-assessed prior to indication. KAIDEN ROSSI MD FACP FAC CCDS May 23, 2022 18:16
[2022-05-23] MEDS: oxyCODONE/APAP 5/325MG (PERCOCET 5) TABLET PO PRN (20:01)
--- NOTE | 2022-05-23 20:54 | CARDIAC CATHETERIZATION ---
DATE OF SERVICE: 05/23/2022 CARDIAC CATHETERIZATION REPORT The patient is a 67-year-old gentleman, who was admitted with epigastric discomfort and troponin was mildly elevated, indicative of a non-ST elevation myocardial infarction. Cardiac catheterization was carried out after having obtained an informed consent. DESCRIPTION OF PROCEDURE: He was brought to the cardiac catheterization laboratory in a fasting state. Right groin was prepared and draped in the usual sterile fashion. Lidocaine 1% was used for local anesthesia. Modified Seldinger technique was used to advance a 6-Cymraes sheath in the right femoral artery. A 6-Cymraes JL4 catheter was used for left coronary angiography. A 6-Cymraes JR4 catheter for right coronary angiography. A 6-Cymraes pigtail catheter was used for left heart catheterization and left ventricular angiography. The pigtail catheter was pulled back and removed. Angiography of the right femoral artery was carried out through the sheath. Mynx was used to achieve hemostasis. He tolerated the procedure well. HEMODYNAMICS: Left ventricular end-diastolic pressure following coronary angiography was 19 mmHg. There was no significant pressure gradient on pullback across the aortic valve. Ascending aortic pressure was 132/77 with a mean 101 mmHg. CORONARY ANGIOGRAPHY: Left main coronary artery, left anterior descending, left circumflex and right coronary artery do not exhibit angiographically significant disease. Right coronary artery is dominant. LEFT VENTRICULAR ANGIOGRAPHY: Left ventricular angiography was carried out in the right anterior oblique projection. Global left ventricular systolic function appears well preserved. Left ventricular ejection fraction estimated to be 50% to 55%. CONCLUSIONS: 1. No significant coronary artery disease is seen on this study. 2. Well preserved global left ventricular systolic function with an ejection fraction of 50 to 55%. 3. Moderately elevated left ventricular end-diastolic pressure. DISCUSSION AND RECOMMENDATIONS: Based on results of the study, it appears appropriate to continue a conservative regimen. We are continuing aspirin and statin and a low dose of beta nathalia because of the indication of the small non-ST elevation myocardial infarction, even though we have not found significant coronary artery disease. He has a history of sleep apnea that he has not been able to treat. We have advised treatment of sleep apnea. Job ID: [id number] DocumentID: [id number] Dictated Date: 05/23/2022 17:03:38 Frame Changer Date: 05/23/2022 20:53:08 Dictated By: KAIDEN ROSSI MD, MA, FACP, FACC,
[2022-05-23] MEDS ORDERED: MELATONIN 10 MG TABLET PO SCH (21:00)
[2022-05-23] MEDS ORDERED: ROSUVASTATIN 10 MG (CRESTOR) TABLET PO SCH (21:00)
[2022-05-23] MEDS ORDERED: NON-FORMULARY MEDICATION 1 EA EA (Docusate Sodium 200 MG) PO SCH (21:00)
[2022-05-23] MEDS ORDERED: DOCUSATE SODIUM 100 MG (COLACE) CAP PO SCH (21:00)
--- NOTE | 2022-05-23 21:22 | History & Physical ---
HPI History of Present Illness: 67 yo M that presented with moderate epigastric pain and was found to have elevated troponin. Patient has a h/o PUD but states that it felt different then his current symptoms. Patient denies any chest pain or palpations. States that the pain started after he ate dinner. He has not had any new foods. This AM he states that he has a FORTUNE and he has a h/o migraines. Source: patient, spouse Exam Limitations: no limitations Date seen by provider: May 23, 2022 Time Seen by Provider: 09:45 Attending Physician Whitney Rios Aprn PCP Admitting Physician: Mamadou Andrade MD Attending Physician: Mamadou Andrade MD Consult Date of Admission May 22, 2022 at 19:45 Home Medications Home Medications Reviewed patient Home Medication Reconciliation performed by pharmacy medication reconciliations hazardous material technician and/or nursing. Patients Allergies have been reviewed. Allergies Coded Allergies: No Known Drug Allergies (Unverified , 05/22/22) [id number] Hx Patient Social History Living Status: Lives at home with independently Alcohol Use?: No Have you traveled recently?: No Past Medical History HTN CAD Migraines Family Medical History Significant Family History: No Pertinent Family Hx Review of Systems ([facility]) Constitutional: malaise EENTM: no symptoms reported Respiratory: no symptoms reported Cardiovascular: no symptoms reported Gastrointestinal: abdominal pain, loss of appetite, nausea Genitourinary: no symptoms reported Musculoskeletal: back pain, neck pain Skin: no symptoms reported Psychiatric/Neurological: No Symptoms Reported Reviewed Test Results Reviewed Test Results Lab Laboratory Tests Test 05/23/22 05:08 Range/Units White Blood Count 7.2 4.3-11.0 10^3/uL Red Blood Count 4.22 L 4.30-5.52 10^6/uL Hemoglobin 13.3 13.3-17.7 g/dL Hematocrit 40 40-54 % Mean Corpuscular Volume 94 80-99 fL Mean Corpuscular Hemoglobin 32 25-34 pg Mean Corpuscular Hemoglobin Concent 34 32-36 g/dL Red Cell Distribution Width 11.9 10.0-14.5 % Platelet Count 183 130-400 10^3/uL Mean Platelet Volume 9.8 9.0-12.2 fL Immature Granulocyte % (Auto) 0 % Neutrophils (%) (Auto) 60 42-75 % Lymphocytes (%) (Auto) 31 12-44 % Monocytes (%) (Auto) 8 0-12 % Eosinophils (%) (Auto) 1 0-10 % Basophils (%) (Auto) 0 0-10 % Neutrophils # (Auto) 4.3 1.8-7.8 10^3/uL Lymphocytes # (Auto) 2.2 1.0-4.0 10^3/uL Monocytes # (Auto) 0.6 0.0-1.0 10^3/uL Eosinophils # (Auto) 0.0 0.0-0.3 10^3/uL Basophils # (Auto) 0.0 0.0-0.1 10^3/uL Immature Granulocyte # (Auto) 0.0 0.0-0.1 10^3/uL Sodium Level 141 135-145 MMOL/L Potassium Level 3.5 L 3.6-5.0 MMOL/L Chloride Level 106 98-107 MMOL/L Carbon Dioxide Level 23 21-32 MMOL/L Anion Gap 12 5-14 MMOL/L Blood Urea Nitrogen 12 7-18 MG/DL Creatinine 0.91 0.60-1.30 MG/DL Estimat Glomerular Filtration Rate 92 BUN/Creatinine Ratio 13 Glucose Level 105 70-105 MG/DL Calcium Level 8.8 8.5-10.1 MG/DL Corrected Calcium 9.0 8.5-10.1 MG/DL Magnesium Level 1.4 L 1.6-2.4 MG/DL Total Bilirubin 0.8 0.1-1.0 MG/DL Aspartate Amino Transf (AST/SGOT) 36 H 5-34 U/L Alanine Aminotransferase (ALT/SGPT) 38 0-55 U/L Alkaline Phosphatase 50 40-136 U/L Total Protein 6.5 6.4-8.2 GM/DL Albumin 3.7 3.2-4.5 GM/DL Radiology NAME: IKE EASTMAN [facility] REC#: [id number] PT STATUS: REG ER : 1955 PHYSICIAN: EVAN RICH MD ADMIT DATE: 05/22/22/ER FS Signed Date of Exam:05/22/22 CT ANGIO CHEST W PROCEDURE: CT angiography of the chest with contrast. TECHNIQUE: Multiple contiguous axial images were obtained through the chest after uneventful bolus administration of intravenous contrast. 3D reconstructed CTA MIP acquisitions were also performed. Auto Exposure Controls were utilized during the CT exam to meet ALARA standards for radiation dose reduction. INDICATION: Elevated D-dimer. FINDINGS: Pulmonary arterial branches are well opacified and widely patent. No filling defect. No PE. The thoracic aorta is nonaneurysmal. There is no pleural or pericardial effusion. There are no findings of pneumonia or pulmonary edema. No lung mass or suspicious nodule. There is no thoracic lymphadenopathy and no acute chest wall pathology. Spinal catheter terminates at the T1-T2 level. The visualized upper abdomen is nonacute. IMPRESSION: 1. Negative for PE or acute aortic disease. Clear lungs with no mass, edema, or pneumonia. No effusion or pleural pathology. 2. No acute-appearing abnormality identified. Dictated by: Dictated on workstation # [id number] Dict: 05/22/225 Trans: 05/22/221801 AS6 [id number] Interpreted by: RAVEN CASTANEDA Electronically signed by: RAVEN CASTANEDA 05/22/221801 NAME: JARENIKE Jessi [facility] REC#: [id number] PT STATUS: REG ER : 1955 PHYSICIAN: EVAN RICH MD ADMIT DATE: 05/22/22/ER FS Signed Date of Exam:05/22/22 CT ABDOMEN/PELVIS W EXAMINATION: CT abdomen and pelvis with intravenous contrast. TECHNIQUE: Multiple contiguous axial images were obtained through the abdomen and pelvis after the uneventful administration of intravenous contrast. All CT scans use one or more of the following dose optimizing techniques: automated exposure control, MA and/or KvP adjustment based on patient size and exam type or iterative reconstruction. HISTORY: Epigastric pain. COMPARISON: None available. FINDINGS: Limited views of the lower thorax are unremarkable. The liver is normal without focal lesion. There is no biliary ductal dilation. Gallbladder is normal. Pancreas is normal. Spleen is normal. Adrenal glands are normal. Simple cysts are present in the kidneys. No suspicious renal lesions. There is no hydronephrosis. Urinary bladder is normal. Bowel is normal in caliber without obstruction or inflammation. Trace amount of free fluid is present in the pelvis. No free air. No abdominal or pelvic lymphadenopathy. Aorta is normal in caliber without aneurysm. There are no suspicious osseus lesions. Spinal stimulator is present. IMPRESSION: No acute abnormality in the abdomen or pelvis. Dictated by: Dictated on workstation # [id number] Dict: 05/22/22 1520 Trans: 05/22/22 1657 [id number] Interpreted by: LASHAWN HOLLAND MD Electronically signed by: LASHAWN HOLLAND MD 05/22/22 1657 NAME: IKE EASTMAN [facility] REC#: [id number] PT STATUS: REG ER : 1955 PHYSICIAN: EVAN RICH MD ADMIT DATE: 05/22/22/ER FS Signed Date of Exam:05/22/22 CHEST 1 VIEW AP/PA ONLY Indication: Epigastric pain. Time of Exam: 3:11 PM No prior studies are available for comparison. Heart size normal. Right hemidiaphragm is mildly elevated. Lungs are clear. No infiltrates are seen. There is no effusion or pneumothorax. Battery pack overlies the left base. IMPRESSION: No acute cardiopulmonary process is detected. Dictated by: Dictated on workstation # [id number] Dict: 05/22/22 1540 Trans: 05/22/22 1552 [facility] [id number] Interpreted by: TIAN QUESADA MD Electronically signed by: TIAN QUESADA MD 05/22/22 1552 Physical Exam-([facility]) Physical Exam Vital Signs VS - Last 72 Hours, by Label 05/22/22 05/22/22 05/22/22 05/22/22 14:53 18:15 19:51 19:55 Temp 36.8 Pulse 69 58 62 61 Resp 18 18 31 B/P (MAP) 164/99 (120) 124/84 138/92 (107) Pulse Ox 99 95 92 O2 Delivery Room Air Room Air 05/22/22 05/22/22 05/22/22 05/23/22 20:00 20:00 22:00 00:00 Temp 36.4 37.3 Pulse 49 68 Resp 24 B/P (MAP) 103/69 (78) 97/62 (74) Pulse Ox 98 95 96 O2 Delivery Room Air Room Air Room Air 05/23/22 05/23/22 05/23/22 05/23/22 00:38 01:00 02:01 03:59 Temp 36.4 Pulse 52 70 Resp 24 B/P (MAP) 103/59 (74) Pulse Ox 98 98 95 O2 Delivery Room Air Room Air Room Air 05/23/22 05/23/22 05/23/22 05/23/22 04:24 06:28 07:37 07:38 Temp 37.1 Pulse 49 54 Resp 18 B/P (MAP) 112/67 (82) Pulse Ox 98 96 O2 Delivery Room Air Nasal Cannula Room Air O2 Flow Rate 2.00 05/23/22 05/23/22 05/23/22 11:55 13:05 19:45 Temp 36.7 36.8 Pulse 54 59 62 Resp 18 12 B/P (MAP) 127/81 (96) 111/71 (84) Pulse Ox 96 96 O2 Delivery Nasal Cannula O2 Flow Rate 2.00 Capillary Refill : NONE General Appearance: WD/WN, no apparent distress HEENT: PERRL/EOMI Neck: non-tender, full range of motion, supple Respiratory: chest non-tender, lungs clear, normal breath sounds, no respiratory distress, no accessory muscle use Cardiovascular: normal peripheral pulses, regular rate, rhythm, no murmur Gastrointestinal: soft, other (epigastric pain with palpation, no rebound or guarding) Extremities: normal range of motion, non-tender, normal inspection, no pedal edema, no calf tenderness, normal capillary refill Neurologic/Psychiatric: director of archives II-XII nml as tested, alert, oriented x 3 Skin: normal color, warm/dry Lymphatic: no adenopathy Assessment/Plan Assessment/Plan Admission Status: Inpatient Order (span 2 midnights) Reason for Inpatient Admission: requires urgent cardiology consult and continuous heart monitoring (1) NSTEMI (non-ST elevated myocardial infarction) Status: Acute Assessment & Plan: - Cardiology consulted, Dr Christian took patient to laboratory phlebotomist today (2) Epigastric abdominal pain Status: Acute Assessment & Plan: - H/o PUD, Started on H2 nathalia and PPI, Will monitor abdominal pain (3) Chronic neck pain Status: Chronic (4) BPH (benign prostatic hyperplasia) Status: Chronic Assessment & Plan: - Continue home meds Qualifiers: Qualified Codes: N40.1 - Benign prostatic hyperplasia with lower urinary tract symptoms; R35.0 - Frequency of micturition (5) DVT prophylaxis Assessment & Plan: MAMADOU Arita MD May 23, 2022 21:22
[2022-05-24] VITALS: BP 104/64
[2022-05-24 04:00] VITALS: BP 112/79
[2022-05-24] MEDS: oxyCODONE/APAP 5/325MG (PERCOCET 5) TABLET PO PRN (04:30)
[2022-05-24 06:13] LABS: BASOPHILS % (AUTO) 1 % (0-10); EOSINOPHILS # (AUTO) 0.1 10^3/uL (0.0-0.3); EOSINOPHILS % (AUTO) 1 % (0-10); HEMATOCRIT 35 % (40-54); HEMOGLOBIN 11.7 g/dL (13.3-17.7); LYMPHOCYTES # (AUTO) 1.4 10^3/uL (1.0-4.0); LYMPHOCYTES % (AUTO) 27 % (12-44); MEAN CORPUSCULAR HEMOGLOBIN 32 pg (25-34); MEAN CORPUSCULAR HGB CONC 33 g/dL (32-36); MEAN CORPUSCULAR VOLUME 96 fL (80-99); MONOCYTES # (AUTO) 0.4 10^3/uL (0.0-1.0); MONOCYTES % (AUTO) 8 % (0-12); NEUTROPHILS # (AUTO) 3.4 10^3/uL (1.8-7.8); NEUTROPHILS % (AUTO) 63 % (42-75); PLATELET COUNT 148 10^3/uL (130-400); WHITE BLOOD COUNT 5.4 10^3/uL (4.3-11.0)
[2022-05-24 06:23] LABS: ALBUMIN 3.3 GM/DL (3.2-4.5)
[2022-05-24 06:25] LABS: CALCIUM 8.5 MG/DL (8.5-10.1)
[2022-05-24 06:26] LABS: TOTAL PROTEIN 5.8 GM/DL (6.4-8.2)
[2022-05-24 06:28] LABS: BILIRUBIN,TOTAL 0.6 MG/DL (0.1-1.0)
[2022-05-24 06:30] LABS: CREATININE SERUM 0.77 MG/DL (0.60-1.30)
[2022-05-24 06:32] LABS: MAGNESIUM 1.9 MG/DL (1.6-2.4)
[2022-05-24] MEDS: NS IV 1000 ML 1,000 ML IV SCH (06:32)
[2022-05-24] MEDS ORDERED: CYANOCOBALAMIN 1,000 MCG (VITAMIN B-12) TABLET PO SCH (07:00)
[2022-05-24 08:20] VITALS: BP 121/72
[2022-05-24] MEDS: ASPIRIN 81 MG CHEW (CHILDREN'S ASA) PO SCH (08:33)
[2022-05-24] MEDS: HYDROmorphone 2 MG/ML VIAL (DILAUDID) IV PRN (08:34)
[2022-05-24] MEDS ORDERED: PANTOPRAZOLE 40 MG (PROTONIX) TAB PO SCH (09:00)
[2022-05-24] MEDS ORDERED: NON-FORMULARY MEDICATION 1 EA EA (Cyanocobalamin (Vitamin B-12) (Vitamin B-12) 2,000 MCG) PO SCH (09:00)
[2022-05-24] MEDS ORDERED: VITAMIN D3 25 MCG (1,000 UNITS) TABLET PO SCH (09:00)
[2022-05-24] MEDS ORDERED: NON-FORMULARY MEDICATION 1 EA EA (Cholecalciferol (Vitamin D3) (Vitamin D3) 50 MCG) PO SCH (09:00)
[2022-05-24] MEDS ORDERED: TAMSULOSIN 0.4 MG (FLOMAX) CAP PO SCH (09:00)
--- NOTE | 2022-05-24 09:44 | Progress Note - Cardiology ---
Cardiology SOAP Progress Note Subjective: Lying in bed No c/o CP, SOB or palpitations Objective: I&O/Vital Signs 05/23/22 05/23/22 05/24/22 05/24/22 22:00 23:00 00:00 01:00 Temp 36.0 Pulse 43 46 44 42 Resp 13 22 B/P (MAP) 79/44 (59) 110/65 (80) 104/64 (77) Pulse Ox 97 95 96 O2 Delivery Nasal Cannula Nasal Cannula Nasal Cannula O2 Flow Rate 2.00 2.00 2.00 05/24/22 05/24/22 05/24/22 05/24/22 04:00 06:32 08:00 08:20 Temp 36.3 36.2 Pulse 49 43 57 Resp 22 B/P (MAP) 112/79 (90) 121/72 (88) Pulse Ox 96 98 O2 Delivery Nasal Cannula Room Air Nasal Cannula O2 Flow Rate 2.00 2.00 05/24/22 00:00 Intake Total 1855 ml Output Total 250 ml Balance 1605 ml Constitutional: AAO x 3, well-developed, well-nourished Respiratory: No accessory muscle use, No respiratory distress; chest expansion is symmetric, chest is bilaterally symmetric, lungs clear to auscultation Cardiovascular: regular rate-rhythm; No JVD; S1 and S2 Gastrointestional: No tender; soft, round, audible bowel sounds Extremities: no lower extremity edema bilateral Neurologic/Psychiatric: grossly intact (moves all extremities) Skin: No rash on exposed areas, No ulcerations on exposed areas Results/Procedures: Labs Laboratory Tests 05/24/22 05:51: White Blood Count 5.4, Red Blood Count 3.65L, Hemoglobin 11.7L, Hematocrit 35L, Mean Corpuscular Volume 96, Mean Corpuscular Hemoglobin 32, Mean Corpuscular Hemoglobin Concent 33, Red Cell Distribution Width 11.8, Platelet Count 148, Mean Platelet Volume 10.0, Immature Granulocyte % (Auto) 0, Neutrophils (%) (Auto) 63, Lymphocytes (%) (Auto) 27, Monocytes (%) (Auto) 8, Eosinophils (%) (Auto) 1, Basophils (%) (Auto) 1, Neutrophils # (Auto) 3.4, Lymphocytes # (Auto) 1.4, Monocytes # (Auto) 0.4, Eosinophils # (Auto) 0.1, Basophils # (Auto) 0.0, Immature Granulocyte # (Auto) 0.0, Sodium Level 140, Potassium Level 4.0, Chloride Level 107, Carbon Dioxide Level 23, Anion Gap 10, Blood Urea Nitrogen 15, Creatinine 0.77, Estimat Glomerular Filtration Rate 98, BUN/Creatinine Ratio 19, Glucose Level 99, Calcium Level 8.5, Corrected Calcium 9.1, Magnesium Level 1.9, Total Bilirubin 0.6, Aspartate Amino Transf (AST/SGOT) 24, Alanine Aminotransferase (ALT/SGPT) 26, Alkaline Phosphatase 43, Total Protein 5.8L, Albumin 3.3 Laboratory Tests 05/22/22 14:05 05/23/22 05:08 05/24/22 05:51 A/P: Assessment: NSTEMI - card cath on 05/23/22: no angiographically significant CAD, LVEF 50-55%, LVEDP 19 mmHg Echocardiogram of 05-23-22 showed LVEF 50-55%. Grade 2 diastolic dysfunction. PASP 40-45 mmHg NATASHA - non-compliant with CPAP tx - advise compliance HTN HLD BPH Chronic neck and back pain - has a pain pump implanted - h/o cervical neck surgery H/O bilat knee replacements Plan: Continue ASA and BB Continue Crestor Continue PPI due h/o PUD and GERD Discussed results of cardiac cath Ok to discharge home from cardiac stand point Advise out pt f/u appt CLARISSA HUMPHRIES May 24, 2022 09:44
[2022-05-24] MEDS ORDERED: ASPI81TA64 PO (09:47)
--- NOTE | 2022-05-24 10:58 | Discharge Summary ---
Diagnosis/Chief Complaint Date of Admission May 22, 2022 at 19:45 Date of Discharge Discharge Diagnosis Problems/Diagnosis: (1) NSTEMI (non-ST elevated myocardial infarction) Assessment & Plan: - Cardiology consulted, Dr Christian took patient to roving tester laboratory today Status: Acute (2) Epigastric abdominal pain Assessment & Plan: - H/o PUD, Started on H2 nathalia and PPI, Will monitor abdominal pain Status: Acute (3) Chronic neck pain Status: Chronic (4) BPH (benign prostatic hyperplasia) Assessment & Plan: - Continue home meds Qualifiers: Qualified Codes: N40.1 - Benign prostatic hyperplasia with lower urinary tract symptoms; R35.0 - Frequency of micturition Status: Chronic (5) DVT prophylaxis Assessment & Plan: Lovenox Chief Complaint/HPI Chief Complaint/HPI 67 yo M that presented with moderate epigastric pain and was found to have elevated troponin. Patient has a h/o PUD but states that it felt different then his current symptoms. Patient denies any chest pain or palpations. States that the pain started after he ate dinner. He has not had any new foods. This AM he states that he has a FORTUNE and he has a h/o migraines. Discharge Summary-Simple/Stand Consultations Discharge Physical Examination Allergies: Coded Allergies: No Known Drug Allergies (Unverified , 05/22/22) Vitals & I&Os Vital Sign - Last 12Hours Date Time Temp Pulse Resp B/P (MAP) Pulse Ox O2 Delivery O2 Flow Rate FiO2 05/24/22 08:20 36.2 57 22 121/72 (88) 98 Nasal Cannula 2.00 Intake and Output 05/24/22 00:00 Intake Total 1855 ml Output Total 250 ml Balance 1605 ml Hospital Course See final discharge diagnosis. Radiology Reviewed NAME: IKE EASTMAN [facility] REC#: [id number] PT STATUS: REG ER : 1955 PHYSICIAN: EVAN RICH MD ADMIT DATE: 05/22/22/ER FS Signed Date of Exam:05/22/22 CT ANGIO CHEST W PROCEDURE: CT angiography of the chest with contrast. TECHNIQUE: Multiple contiguous axial images were obtained through the chest after uneventful bolus administration of intravenous contrast. 3D reconstructed CTA MIP acquisitions were also performed. Auto Exposure Controls were utilized during the CT exam to meet ALARA standards for radiation dose reduction. INDICATION: Elevated D-dimer. FINDINGS: Pulmonary arterial branches are well opacified and widely patent. No filling defect. No PE. The thoracic aorta is nonaneurysmal. There is no pleural or pericardial effusion. There are no findings of pneumonia or pulmonary edema. No lung mass or suspicious nodule. There is no thoracic lymphadenopathy and no acute chest wall pathology. Spinal catheter terminates at the T1-T2 level. The visualized upper abdomen is nonacute. IMPRESSION: 1. Negative for PE or acute aortic disease. Clear lungs with no mass, edema, or pneumonia. No effusion or pleural pathology. 2. No acute-appearing abnormality identified. Dictated by: Dictated on workstation # [id number] Dict: 05/22/225 Trans: 05/22/221801 AS6 [id number] Interpreted by: RAVEN CASTANEDA Electronically signed by: RAVEN CASTANEDA 05/22/221801 NAME: IKE EASTMAN [facility] REC#: [id number] PT STATUS: REG ER : 1955 PHYSICIAN: EVAN RICH MD ADMIT DATE: 05/22/22/ER FS Signed Date of Exam:05/22/22 CT ABDOMEN/PELVIS W EXAMINATION: CT abdomen and pelvis with intravenous contrast. TECHNIQUE: Multiple contiguous axial images were obtained through the abdomen and pelvis after the uneventful administration of intravenous contrast. All CT scans use one or more of the following dose optimizing techniques: automated exposure control, MA and/or KvP adjustment based on patient size and exam type or iterative reconstruction. HISTORY: Epigastric pain. COMPARISON: None available. FINDINGS: Limited views of the lower thorax are unremarkable. The liver is normal without focal lesion. There is no biliary ductal dilation. Gallbladder is normal. Pancreas is normal. Spleen is normal. Adrenal glands are normal. Simple cysts are present in the kidneys. No suspicious renal lesions. There is no hydronephrosis. Urinary bladder is normal. Bowel is normal in caliber without obstruction or inflammation. Trace amount of free fluid is present in the pelvis. No free air. No abdominal or pelvic lymphadenopathy. Aorta is normal in caliber without aneurysm. There are no suspicious osseus lesions. Spinal stimulator is present. IMPRESSION: No acute abnormality in the abdomen or pelvis. Dictated by: Dictated on workstation # [id number] Dict: 05/22/22 1520 Trans: 05/22/22 1657 [id number] Interpreted by: LASHAWN HOLLAND MD Electronically signed by: LASHAWN HOLLAND MD 05/22/22 1657 NAME: IKE EASTMAN [facility] REC#: [id number] PT STATUS: REG ER : 1955 PHYSICIAN: EVAN RICH MD ADMIT DATE: 05/22/22/ER FS Signed Date of Exam:05/22/22 CHEST 1 VIEW AP/PA ONLY Indication: Epigastric pain. Time of Exam: 3:11 PM No prior studies are available for comparison. Heart size normal. Right hemidiaphragm is mildly elevated. Lungs are clear. No infiltrates are seen. There is no effusion or pneumothorax. Battery pack overlies the left base. IMPRESSION: No acute cardiopulmonary process is detected. Dictated by: Dictated on workstation # [id number] Dict: 05/22/22 1540 Trans: 05/22/22 1552 [facility] [id number] Interpreted by: TIAN QUESADA MD Electronically signed by: TIAN QUESADA MD 05/22/22 1552 Discharge Instructions to patient/family Please see electronic discharge instructions given to patient. Discharge Medications Reviewed and agree with Discharge Medication list on patient's Discharge Instruction sheet MAMADOU MAYNARD MD May 24, 2022 10:58
--- NOTE | 2022-05-24 11:00 | Discharge Summary ---
Discharge [facility] Reconcile Patient Problems Problems Reviewed?: Yes Discharge Medications New, Converted or Re-Newed RX: Transmitted to Pharmacy New Medications: Aspirin (Children's Aspirin) 81 Mg Tab.chew 81 MG PO DAILY, #30 TAB 2 Refills Continued Medications: Cholecalciferol (Vitamin D3) (Vitamin D3) 50 Mcg (2000 Unit) Capsule 50 MCG PO DAILY, CAP Cyanocobalamin (Vitamin B-12) (Vitamin B-12) 2,000 Mcg Tablet 2000 MCG PO DAILY, TAB Diphenhydramine HCl (Benadryl Allergy) 25 Mg Tablet 50 MG PO HS PRN for SLEEP, TAB Docusate Sodium (Docusate Sodium) 100 Mg Tablet 200 MG PO HS, TAB Ibuprofen (Ibuprofen) 200 Mg Capsule 400 MG PO Q8H PRN for PAIN-MILD (1-4), CAP Melatonin (Melatonin) 10 Mg Tablet 10 MG PO HS, TAB Metoprolol Succinate (Metoprolol Succinate) 25 Mg Tab.er.24h 25 MG PO DAILY, TAB Omeprazole (Omeprazole) 20 Mg Tablet.dr 20 MG PO HS, TAB Rosuvastatin Calcium (Rosuvastatin Calcium) 10 Mg Tablet 10 MG PO DAILY, TAB Tamsulosin HCl (Flomax) 0.4 Mg Cap 0.4 MG PO DAILY, TAB Patient Instructions Goal/Follow Up Appt: Patrice 1-2 weeks with Whitney Liang Activity & Diet Discharge Diet: Eat Small Frequent Meals, Cardiac Diet Activity as Tolerated: Yes MAMADOU MAYNARD MD May 24, 2022 10:59
[2022-05-24] MEDS ORDERED: KETOROLAC 30 MG/ML VIAL IVP NR (11:30)
--- NOTE | 2022-05-24 14:07 | Progress Note - Cardiology ---
Cardiology SOAP Progress Note Subjective: No cp or palp or syncope or shortness of breath No leg or groin discomfort No n/v/d Generally feels well Objective: I&O/Vital Signs 05/24/22 05/24/22 05/24/22 05/24/22 04:00 06:32 08:00 08:20 Temp 36.3 36.2 Pulse 49 43 57 Resp 24 22 B/P (MAP) 112/79 (90) 121/72 (88) Pulse Ox 96 98 O2 Delivery Nasal Cannula Room Air Nasal Cannula O2 Flow Rate 2.00 2.00 05/24/22 11:50 B/P (MAP) 05/24/22 00:00 Intake Total 1855 ml Output Total 250 ml Balance 1605 ml Condition: DP/PT pulses palpable Device Insertion Site: without hematoma Bruising: mild bruising Constitutional: AAO x 3, well-developed, well-nourished Respiratory: No accessory muscle use, No respiratory distress; chest expansion is symmetric, chest is bilaterally symmetric, lungs clear to auscultation Cardiovascular: regular rate-rhythm; No JVD; S1 and S2 Gastrointestional: No tender; soft, round, audible bowel sounds Extremities: no lower extremity edema bilateral Neurologic/Psychiatric: grossly intact (moves all extremities) Skin: No rash on exposed areas, No ulcerations on exposed areas Results/Procedures: Labs Laboratory Tests 05/24/22 05:51: White Blood Count 5.4, Red Blood Count 3.65L, Hemoglobin 11.7L, Hematocrit 35L, Mean Corpuscular Volume 96, Mean Corpuscular Hemoglobin 32, Mean Corpuscular Hemoglobin Concent 33, Red Cell Distribution Width 11.8, Platelet Count 148, Mean Platelet Volume 10.0, Immature Granulocyte % (Auto) 0, Neutrophils (%) (Auto) 63, Lymphocytes (%) (Auto) 27, Monocytes (%) (Auto) 8, Eosinophils (%) (Auto) 1, Basophils (%) (Auto) 1, Neutrophils # (Auto) 3.4, Lymphocytes # (Auto) 1.4, Monocytes # (Auto) 0.4, Eosinophils # (Auto) 0.1, Basophils # (Auto) 0.0, Immature Granulocyte # (Auto) 0.0, Sodium Level 140, Potassium Level 4.0, Chloride Level 107, Carbon Dioxide Level 23, Anion Gap 10, Blood Urea Nitrogen 15, Creatinine 0.77, Estimat Glomerular Filtration Rate 98, BUN/Creatinine Ratio 19, Glucose Level 99, Calcium Level 8.5, Corrected Calcium 9.1, Magnesium Level 1.9, Total Bilirubin 0.6, Aspartate Amino Transf (AST/SGOT) 24, Alanine Aminotransferase (ALT/SGPT) 26, Alkaline Phosphatase 43, Total Protein 5.8L, Albumin 3.3 Laboratory Tests 05/23/22 05:08 05/24/22 05:51 A/P: Assessment: NSTEMI - card cath on 05/23/22: no angiographically significant CAD, LVEF 50-55%, LVEDP 19 mmHg Echocardiogram of 05-23-22 showed LVEF 50-55%. Grade 2 diastolic dysfunction. PASP 40-45 mmHg NATASHA - non-compliant with CPAP tx - advise compliance HTN HLD BPH Chronic neck and back pain - has a pain pump implanted - h/o cervical neck surgery H/O bilat knee replacements Plan: Continue ASA and BB Continue Crestor Continue PPI due h/o PUD and GERD Discussed results of cardiac cath Ok to discharge home from cardiac stand point Advise out pt f/u appt KAIDEN ROSSI MD FACP FAC CCDS May 24, 2022 14:07
== END 2022-05-24 11:50 | disposition home or self-care (01) | DRG 282 ==
LOC: ER FS 13:26 → CSD 19:45
PROVIDERS: ADMIT Family Medicine; ATTEND Family Medicine
PROC: 4A023N7 Measurement of Cardiac Sampling and Pressure, Left Heart, Percutaneous Approach (ICD-10-PCS; principal; 2022-05-23)
PROC: B2111ZZ Fluoroscopy of Multiple Coronary Arteries using Low Osmolar Contrast (ICD-10-PCS; 2022-05-23)
PROC: B2151ZZ Fluoroscopy of Left Heart using Low Osmolar Contrast (ICD-10-PCS; 2022-05-23)
DX: I21.4 Non-ST elevation (NSTEMI) myocardial infarction (principal); I25.10 Atherosclerotic heart disease of native coronary artery without angina pectoris; I10 Essential (primary) hypertension; E78.5 Hyperlipidemia, unspecified; N40.0 Benign prostatic hyperplasia without lower urinary tract symptoms; G47.33 Obstructive sleep apnea (adult) (pediatric); M54.2 Cervicalgia; Z20.822 Contact with and (suspected) exposure to COVID-19; Z86.16 Personal history of COVID-19; Z96.653 Presence of artificial knee joint, bilateral
CPT/HCPCS: 36415; 71045; 71275; 74177; 80053; 81000; 83605; 83690; 83735; 83880; 84484; 85025; 85379; 85610; 85730; 87636; 93005; 93306; 93458; Q9967

== ENCOUNTER → 2023-09-10 | Outpatient (CLI) | payer MEDICARE, OTHER ==
[~2023-09-10] MED LIST: ASPI81TA64 PO; CHOL20002 PO; CYAN200014 PO; DIPH25TA65 PO; DOCU100T2 PO; IBUP-2185 PO; MELA10TA2 PO; MTP25TSR PO; OMEP20TA56 PO; ROSU10TA28 PO; TMSL.4C PO
[2023-09-10 10:48] VITALS: BP 139/87
--- NOTE | 2023-09-10 12:37 | Cardiology Stress Test Report ---
Stress Test Report Date of Procedure/Referring: Date of Procedure: Sep 10, 2023 PCP Whitney Rios Aprn Admitting Physician Admitting Physician: Attending Physician: Flor Hickman Pa-C Baseline Heart Rate: 50 Baseline Blood Pressure: Blood Pressure Systolic: 139 Blood Pressure Diastolic: 87 Baseline EKG: Baseline EKG: NSR Summary/Conclusion: Summary: In summary, the patient started exercising with a baseline heart rate, blood pressure and EKG mentioned above Patient was able to exercise for a total of 8 minutes on Andrew protocol, METs 9.7 Maximum heart rate 130 Maximum blood pressure 159/76 Stress EKG, Minimal nondiagnostic changes Recovery EKG , Return to baseline Conclusion: 1. Good exercise tolerance for a total of 8 minutes on Andrew protocol, 9.7 METs, achieving 86 percent of maximum expected heart rate 2. Minimal nondiagnostic EKG changes with exercise returned to baseline during recovery 3. No arrhythmia was noted Copy Copies To 1: [facility]SERVANDO SOLIMAN MD Sep 10, 2023 12:37
== END ==
LOC: CARD 09:40
PROVIDERS: ATTEND Physician Assistant
DX: R07.9 Chest pain, unspecified (principal)
CPT/HCPCS: 93017

== ENCOUNTER → 2023-10-04 | Outpatient (CLI) | payer MEDICARE, OTHER | LOC: CARD 08:46 | PROVIDERS: ATTEND Physician Assistant | DX: I34.0 Nonrheumatic mitral (valve) insufficiency (principal); I25.10 Atherosclerotic heart disease of native coronary artery without angina pectoris; I11.9 Hypertensive heart disease without heart failure | CPT/HCPCS: 93306 ==